=== PATIENT | male | born 1960 | race Caucasian/White ===

== ENCOUNTER 2020-12-10 05:35 | Inpatient (IN) ==
[2020-12-05 12:18] LABS: Basophils # 0.1 10*3/uL (0.0-0.2); Basophils % 1.1 % (0.0-0.8); Eosinophils # 0.3 10*3/uL (0.0-0.87); Eosinophils % 4.8 % (0.00-10.9); Hematocrit 44.9 VOL% (42.0-52.0); Hemoglobin 14.6 GM/DL (14.0-18.0); Immature Granulocytes % 0.2 %; Immature Granulocytes Absolute 0.01 #; Lymphocytes # 2.5 10*3/uL (1.4-4.0); Mean Corpuscular HGB Conc 32.5 GM/DL (32-36); Mean Corpuscular Volume 90.9 FL (87-102); Mean Platelet Volume 10.3 FL (9.6-12.0); Monocytes % 5.7 % (1.7-12.7); Neutrophils % 43.2 % (38.7-73.9); Platelet Count 310 T/CUMM (130-400); Red Blood Count 4.94 MC/CUMM (3.8-5.5); Red Cell Distribution Width 13.2 % (9.3-17.3); White Blood Count 5.6 T/CUMM (4-12)
[2020-12-05 12:41] LABS: Albumin 4.2 G/DL (3.4-5.0); Bilirubin,Total 0.9 MG/DL (0.20-1.00); Calcium 9.7 MG/DL (8.5-10.1); Osmolality,Calculated 278.4 MOS/KG (273-304); Potassium 5.1 MMOL/L (3.5-5.1); Total Protein 7.4 G/DL (6.4-8.2)
[2020-12-10] MEDS ORDERED: GABAPENTIN 400 MG CAPSULE PO ONE (06:00)
[2020-12-10] MEDS ORDERED: cefTRIAXone 1,000 MG in SODIUM CHLORIDE 0.9% 100 ML IV ONE (06:00)
[2020-12-10] MEDS ORDERED: FAMOTIDINE 20 MG TABLET PO ONE (06:00)
[2020-12-10] MEDS ORDERED: ACETAMINOPHEN 500 MG TABLET PO ONE (06:00)
[2020-12-10] MEDS ORDERED: MIDAZOLAM 2 MG/2 ML VIAL ONE (06:05)
[2020-12-10] MEDS ORDERED: SUCCINYLCHOLINE 200 MG/10 ML VIAL ONE (06:05)
[2020-12-10] MEDS ORDERED: DEXAMETHASONE 4 MG/1 ML VIAL ONE (06:05)
[2020-12-10] MEDS ORDERED: LIDOCAINE 2% 5 ML VIAL ONE (06:05)
[2020-12-10] MEDS ORDERED: GLYCOPYRROLATE 0.4 MG/2 ML VIAL ONE (06:05)
[2020-12-10] MEDS ORDERED: KETOROLAC 30 MG/1 ML VIAL ONE (06:05)
[2020-12-10] MEDS ORDERED: propofoL 200 MG/20 ML VIAL IV ONE (06:05)
[2020-12-10] MEDS ORDERED: fentaNYL 100 MCG/2 ML VIAL ONE ×2 (06:05→09:00)
[2020-12-10] MEDS ORDERED: ROCURONIUM 50 MG/5 ML VIAL IV ONE (06:06)
[2020-12-10] MEDS ORDERED: SEVOFLURANE 1 UNIT/15 MINUTE INH ONE ×12 (06:06→10:16)
[2020-12-10] MEDS ORDERED: ONDANSETRON 4 MG/2 ML VIAL ONE (06:19)
[2020-12-10] MEDS ORDERED: MANNITOL 12.5 GM/50 ML VIAL IV ONE (06:33)
[2020-12-10] MEDS ORDERED: INDOCYANINE GREEN 25 MG VIAL IV ONE (06:34)
[2020-12-10] MEDS ORDERED: ePHEDrine 50 MG/ML VIAL ONE (08:14)
[2020-12-10 08:44] LABS: Bilirubin,Urine Negative (Negative); Blood, Urine Small mg/dL (Negative); Glucose,Urine (UA) Negative (Negative); Ketones,Urine Negative (Negative); Mucus,Urine Occasional /LPF (Occasional); Nitrite,Urine Negative (Negative); Protein,Urine Negative; RBC,Urine 4 /HPF (0-4); Urine Appearance Slightly Hazy (Clear); Urine Color Yellow (Yellow); Urine Specific Gravity 1.024 (1.001-1.035)
[2020-12-10] MEDS ORDERED: NEOSTIGMINE 10 MG/10 ML VIAL ONE (09:26)
[2020-12-10] MEDS ORDERED: LACTATED RINGERS 2,000 ML IV ONE (09:36)
[2020-12-10] MEDS ORDERED: ROPIVACAINE 0.5% 30 ML VIAL ONE (10:05)
[2020-12-10] MEDS ORDERED: diphenhydrAMINE CAP 25 MG CAPSULE PO PRN (10:48)
[2020-12-10] MEDS ORDERED: LACTULOSE 20 GM/30 ML UDCUP PO PRN (10:48)
[2020-12-10] MEDS ORDERED: MAGNESIUM HYDROXIDE SUSP 30 ML UDCUP PO PRN (10:48)
[2020-12-10] MEDS ORDERED: oxyCODONE/ACETAMINOPHEN 5-325 MG TABLET PO PRN (10:48)
[2020-12-10] MEDS ORDERED: PROMETHAZINE 25 MG/1 ML VIAL IM PRN (10:48)
[2020-12-10] MEDS: HYDROmorphone 2 MG/1 ML VIAL IV PRN ×4 (11:07→17:00)
[2020-12-10] MEDS: SODIUM CHLORIDE 0.9% 1,000 ML IV SCH ×2 (12:45→20:15)
[2020-12-10 13:10] LABS: Basophils # 0.1 10*3/uL (0.0-0.2); Basophils % 0.4 % (0.0-0.8); Eosinophils % 0.2 % (0.00-10.9); Hematocrit 42.1 VOL% (42.0-52.0); Immature Granulocytes % 0.4 %; Immature Granulocytes Absolute 0.06 #; Lymphocytes # 1.2 10*3/uL (1.4-4.0); Lymphocytes % 7.9 % (21.2-54.2); Mean Corpuscular HGB Conc 33.3 GM/DL (32-36); Mean Corpuscular Volume 90.5 FL (87-102); Mean Platelet Volume 10.2 FL (9.6-12.0); Monocytes % 1.3 % (1.7-12.7); Neutrophils % 89.8 % (38.7-73.9); Platelet Count 272 T/CUMM (130-400); Red Blood Count 4.65 MC/CUMM (3.8-5.5); Red Cell Distribution Width 13.2 % (9.3-17.3); White Blood Count 15.2 T/CUMM (4-12)
[2020-12-10 13:37] LABS: Calcium 8.3 MG/DL (8.5-10.1); Osmolality,Calculated 282.4 MOS/KG (273-304); Potassium 3.5 MMOL/L (3.5-5.1)
[2020-12-10 15:37] LABS: Basophils % 0.1 % (0.0-0.8); Hematocrit 39.3 VOL% (42.0-52.0); Hemoglobin 13.1 GM/DL (14.0-18.0); Immature Granulocytes % 0.4 %; Immature Granulocytes Absolute 0.06 #; Lymphocytes # 0.8 10*3/uL (1.4-4.0); Lymphocytes % 5.9 % (21.2-54.2); Mean Corpuscular HGB Conc 33.3 GM/DL (32-36); Mean Corpuscular Volume 89.9 FL (87-102); Mean Platelet Volume 10.2 FL (9.6-12.0); Monocytes % 1.8 % (1.7-12.7); Neutrophils % 91.8 % (38.7-73.9); Platelet Count 265 T/CUMM (130-400); Red Blood Count 4.37 MC/CUMM (3.8-5.5); Red Cell Distribution Width 13.1 % (9.3-17.3); White Blood Count 13.7 T/CUMM (4-12)
[2020-12-10 15:51] LABS: Calcium 8.3 MG/DL (8.5-10.1); Osmolality,Calculated 279.5 MOS/KG (273-304)
[2020-12-10 16:34] LABS: Band Neutrophils 1 % (0-10); Lymphocytes 6 % (20-55); Segmented Neutrophils 92 % (50-85); Total Cells Counted 100
[2020-12-10 16:35] LABS: Platelet Estimate Normal; Reactive Lymphocytes Few
[2020-12-10] MEDS: DOCUSATE SODIUM 100 MG CAPSULE PO SCH (21:47)
[2020-12-10] MEDS: AMITRIPTYLINE 50 MG TABLET PO SCH (21:47)
[2020-12-11 05:54] LABS: Basophils % 0.4 % (0.0-0.8); Eosinophils % 0.1 % (0.00-10.9); Hematocrit 36.9 VOL% (42.0-52.0); Hemoglobin 12.2 GM/DL (14.0-18.0); Immature Granulocytes % 0.2 %; Immature Granulocytes Absolute 0.02 #; Lymphocytes % 19.5 % (21.2-54.2); Mean Corpuscular HGB Conc 33.1 GM/DL (32-36); Mean Corpuscular Volume 90.7 FL (87-102); Mean Platelet Volume 10.2 FL (9.6-12.0); Monocytes % 6.9 % (1.7-12.7); Neutrophils % 72.9 % (38.7-73.9); Platelet Count 256 T/CUMM (130-400); Red Blood Count 4.07 MC/CUMM (3.8-5.5); Red Cell Distribution Width 13.4 % (9.3-17.3); White Blood Count 10.2 T/CUMM (4-12)
[2020-12-11 06:08] LABS: Calcium 8.2 MG/DL (8.5-10.1); Osmolality,Calculated 279.3 MOS/KG (273-304); Potassium 4.4 MMOL/L (3.5-5.1)
[2020-12-11] MEDS: DOCUSATE SODIUM 100 MG CAPSULE PO SCH ×2 (08:28→20:49)
[2020-12-11] MEDS: TAMSULOSIN 0.4 MG CAPSULE PO SCH (08:28)
[2020-12-11] MEDS: ALVIMOPAN 12 MG CAPSULE PO SCH ×2 (08:29→20:50)
[2020-12-11] MEDS: ONDANSETRON 4 MG/2 ML VIAL IV PRN (08:32)
[2020-12-11] MEDS: LACTATED RINGERS 1,000 ML IV SCH (10:36)
[2020-12-11] MEDS: SODIUM CHLORIDE 0.9% 1,000 ML IV SCH (10:36)
[2020-12-11] MEDS: ACETAMINOPHEN 325 MG TABLET PO SCH ×7 (11:17→22:16)
[2020-12-11] MEDS: AMITRIPTYLINE 50 MG TABLET PO SCH (20:50)
[2020-12-12] MEDS: SIMETHICONE CHEW 125 MG TABLET PO PRN (04:16)
[2020-12-12] MEDS: ACETAMINOPHEN 325 MG TABLET PO SCH ×4 (04:17→22:18)
[2020-12-12 05:17] LABS: Basophils % 0.5 % (0.0-0.8); Eosinophils # 0.1 10*3/uL (0.0-0.87); Eosinophils % 1.5 % (0.00-10.9); Hematocrit 38.7 VOL% (42.0-52.0); Hemoglobin 13.1 GM/DL (14.0-18.0); Immature Granulocytes % 0.6 %; Immature Granulocytes Absolute 0.05 #; Lymphocytes # 1.3 10*3/uL (1.4-4.0); Lymphocytes % 14.6 % (21.2-54.2); Mean Corpuscular HGB Conc 33.9 GM/DL (32-36); Mean Corpuscular Volume 89.8 FL (87-102); Mean Platelet Volume 10.2 FL (9.6-12.0); Neutrophils % 75.8 % (38.7-73.9); Platelet Count 270 T/CUMM (130-400); Red Blood Count 4.31 MC/CUMM (3.8-5.5); Red Cell Distribution Width 13.4 % (9.3-17.3); White Blood Count 8.8 T/CUMM (4-12)
[2020-12-12 05:40] LABS: Calcium 8.9 MG/DL (8.5-10.1); Osmolality,Calculated 280.3 MOS/KG (273-304); Potassium 4.1 MMOL/L (3.5-5.1)
[2020-12-12] MEDS ORDERED: BISACODYL 10 MG SUPP RECTAL ONE (08:00)
[2020-12-12] MEDS: ALVIMOPAN 12 MG CAPSULE PO SCH ×2 (09:02→20:57)
[2020-12-12] MEDS: ONDANSETRON 4 MG/2 ML VIAL IV PRN (09:02)
[2020-12-12] MEDS: TAMSULOSIN 0.4 MG CAPSULE PO SCH (09:02)
[2020-12-12] MEDS: DOCUSATE SODIUM 100 MG CAPSULE PO SCH ×2 (09:03→20:57)
[2020-12-12] MEDS ORDERED: MAGNESIUM SULF RIDER 2 GM/50 ML PREMIX IV ONE (17:05)
[2020-12-12] MEDS: SODIUM CHLORIDE 0.9% 1,000 ML IV SCH (17:37)
[2020-12-12] MEDS: ASPIRIN EC 81 MG TABLET PO SCH (17:37)
[2020-12-12] MEDS: HYDROmorphone 2 MG/1 ML VIAL IV PRN ×2 (17:55→22:25)
[2020-12-12] MEDS: AMITRIPTYLINE 50 MG TABLET PO SCH (20:57)
[2020-12-13] MEDS: SIMETHICONE CHEW 125 MG TABLET PO PRN (00:20)
[2020-12-13] MEDS: ACETAMINOPHEN 325 MG TABLET PO SCH ×4 (04:14→23:22)
[2020-12-13] MEDS: SODIUM CHLORIDE 0.9% 1,000 ML IV SCH (04:17)
[2020-12-13 07:21] LABS: Basophils % 0.2 % (0.0-0.8); Eosinophils # 0.4 10*3/uL (0.0-0.87); Eosinophils % 4.4 % (0.00-10.9); Hemoglobin 12.9 GM/DL (14.0-18.0); Immature Granulocytes % 0.3 %; Immature Granulocytes Absolute 0.03 #; Lymphocytes # 1.6 10*3/uL (1.4-4.0); Mean Corpuscular HGB Conc 33.1 GM/DL (32-36); Mean Corpuscular Volume 90.3 FL (87-102); Mean Platelet Volume 10.2 FL (9.6-12.0); Monocytes % 7.6 % (1.7-12.7); Neutrophils % 69.5 % (38.7-73.9); Platelet Count 247 T/CUMM (130-400); Red Blood Count 4.32 MC/CUMM (3.8-5.5); Red Cell Distribution Width 13.1 % (9.3-17.3); White Blood Count 9.1 T/CUMM (4-12)
[2020-12-13 07:51] LABS: Calcium 8.4 MG/DL (8.5-10.1); Osmolality,Calculated 268.1 MOS/KG (273-304); Potassium 3.9 MMOL/L (3.5-5.1)
[2020-12-13] MEDS: TAMSULOSIN 0.4 MG CAPSULE PO SCH (09:03)
[2020-12-13] MEDS: ALVIMOPAN 12 MG CAPSULE PO SCH ×2 (09:03→21:14)
[2020-12-13] MEDS: DOCUSATE SODIUM 100 MG CAPSULE PO SCH ×2 (09:03→21:14)
[2020-12-13] MEDS: ASPIRIN EC 81 MG TABLET PO SCH (09:03)
[2020-12-13] MEDS: ONDANSETRON 4 MG/2 ML VIAL IV PRN (09:07)
[2020-12-13] MEDS: DEXT 5% NACL 0.45% KCL 20 MEQ 20 MEQ/1,000 ML BAG IV SCH ×2 (11:07→19:43)
[2020-12-13] MEDS: METOCLOPRAMIDE 10 MG/2 ML VIAL IV SCH ×3 (12:26→23:23)
[2020-12-13] MEDS ORDERED: HYDROmorphone 2 MG/1 ML VIAL IV PRN (14:32)
[2020-12-13] MEDS ORDERED: ACETAMINOPHEN 325 MG TABLET PO ONE (14:33)
[2020-12-13] MEDS: AMITRIPTYLINE 50 MG TABLET PO SCH (21:14)
[2020-12-14] MEDS: DEXT 5% NACL 0.45% KCL 20 MEQ 20 MEQ/1,000 ML BAG IV SCH ×3 (03:32→17:44)
[2020-12-14] MEDS: ACETAMINOPHEN 325 MG TABLET PO SCH ×4 (05:07→23:09)
[2020-12-14] MEDS: METOCLOPRAMIDE 10 MG/2 ML VIAL IV SCH ×4 (05:07→23:09)
[2020-12-14 06:04] LABS: Basophils % 0.3 % (0.0-0.8); Eosinophils # 0.4 10*3/uL (0.0-0.87); Eosinophils % 6.1 % (0.00-10.9); Hematocrit 36.1 VOL% (42.0-52.0); Hemoglobin 12.4 GM/DL (14.0-18.0); Immature Granulocytes % 0.3 %; Immature Granulocytes Absolute 0.02 #; Lymphocytes # 1.6 10*3/uL (1.4-4.0); Mean Corpuscular HGB Conc 34.3 GM/DL (32-36); Mean Corpuscular Volume 87.8 FL (87-102); Mean Platelet Volume 10.1 FL (9.6-12.0); Monocytes % 8.1 % (1.7-12.7); Neutrophils % 62.2 % (38.7-73.9); Platelet Count 280 T/CUMM (130-400); Red Blood Count 4.11 MC/CUMM (3.8-5.5); Red Cell Distribution Width 12.8 % (9.3-17.3); White Blood Count 6.9 T/CUMM (4-12)
[2020-12-14 06:20] LABS: Calcium 8.2 MG/DL (8.5-10.1); Osmolality,Calculated 274.7 MOS/KG (273-304); Potassium 3.9 MMOL/L (3.5-5.1)
[2020-12-14] MEDS: ASPIRIN EC 81 MG TABLET PO SCH (09:59)
[2020-12-14] MEDS: ALVIMOPAN 12 MG CAPSULE PO SCH ×2 (09:59→21:07)
[2020-12-14] MEDS: TAMSULOSIN 0.4 MG CAPSULE PO SCH (09:59)
[2020-12-14] MEDS: DOCUSATE SODIUM 100 MG CAPSULE PO SCH ×2 (10:06→21:07)
[2020-12-14] MEDS: SODIUM CHLORIDE 0.9% 1,000 ML IV SCH (13:22)
[2020-12-14] MEDS: AMITRIPTYLINE 50 MG TABLET PO SCH (21:07)
[2020-12-15] MEDS: DEXT 5% NACL 0.45% KCL 20 MEQ 20 MEQ/1,000 ML BAG IV SCH (01:30)
[2020-12-15] MEDS: METOCLOPRAMIDE 10 MG/2 ML VIAL IV SCH ×2 (05:06→12:11)
[2020-12-15] MEDS: ACETAMINOPHEN 325 MG TABLET PO SCH ×2 (05:06→12:11)
[2020-12-15 05:37] LABS: Basophils % 0.5 % (0.0-0.8); Eosinophils # 0.5 10*3/uL (0.0-0.87); Hematocrit 36.1 VOL% (42.0-52.0); Immature Granulocytes % 0.3 %; Immature Granulocytes Absolute 0.02 #; Lymphocytes # 1.9 10*3/uL (1.4-4.0); Lymphocytes % 29.1 % (21.2-54.2); Mean Corpuscular HGB Conc 33.2 GM/DL (32-36); Mean Corpuscular Volume 89.6 FL (87-102); Mean Platelet Volume 9.9 FL (9.6-12.0); Monocytes % 9.8 % (1.7-12.7); Neutrophils % 53.3 % (38.7-73.9); Platelet Count 280 T/CUMM (130-400); Red Blood Count 4.03 MC/CUMM (3.8-5.5); White Blood Count 6.4 T/CUMM (4-12)
[2020-12-15 06:06] LABS: Calcium 8.3 MG/DL (8.5-10.1); Osmolality,Calculated 275.5 MOS/KG (273-304); Potassium 4.1 MMOL/L (3.5-5.1)
[2020-12-15] MEDS: DOCUSATE SODIUM 100 MG CAPSULE PO SCH (08:21)
[2020-12-15] MEDS: TAMSULOSIN 0.4 MG CAPSULE PO SCH (08:21)
[2020-12-15] MEDS: ASPIRIN EC 81 MG TABLET PO SCH (08:21)
[2020-12-15] MEDS: ALVIMOPAN 12 MG CAPSULE PO SCH (08:21)
[2020-12-15 12:09] VITALS: BP 144/84
== END 2020-12-15 12:47 | disposition home or self-care (01) | DRG 657 ==
LOC: N.OR 05:35 → N.SDSINP 05:37 → N.3E 12:13
PROVIDERS: ADMIT Surgery; ATTEND Surgery